=== PATIENT | male | born 1965 | race Caucasian/White ===

== ENCOUNTER 2017-07-26 23:59 | Emergency (ER) | payer OTHER ==
[~2017-07-26] VITALS: Ht 170.2 cm; Wt 92.0 kg
[2017-07-27] MEDS ORDERED: KETOROLAC 60MG/2ML VIAL IM ONE (03:15)
[2017-07-27 03:20] VITALS: BP 118/78
== END 2017-07-27 04:20 | disposition home or self-care (01) ==
LOC: ER 23:59
DX: D17.1 Benign lipomatous neoplasm of skin and subcutaneous tissue of trunk (principal)
CPT/HCPCS: 96372; 99283; J1885